=== PATIENT | male | born 1990 | race Caucasian/White ===

== ENCOUNTER 2021-10-31 20:27 | Emergency (ER) | payer BC, SELFPAY ==
[~2021-10-31] VITALS: Ht 182.9 cm; Wt 77.3 kg
[2021-10-31 20:27] VITALS: BP 148/92
== END 2021-11-01 02:42 | disposition left against medical advice (07) ==
LOC: M ED 20:27
DX: Z53.29 Procedure and treatment not carried out because of patient's decision for other reasons (principal)

== ENCOUNTER 2021-12-27 19:12 | Emergency (ER) | payer OTHER ==
[~2021-12-27] VITALS: Ht 182.9 cm; Wt 76.0 kg
[2021-12-27 22:55] VITALS: BP 138/63
== END 2021-12-27 23:00 | disposition home or self-care (01) ==
LOC: M ED 19:12
DX: S06.0X0A Concussion without loss of consciousness, initial encounter (principal); X58.XXXA Exposure to other specified factors, initial encounter; Y92.89 Other specified places as the place of occurrence of the external cause

== ENCOUNTER → 2022-01-18 | Outpatient (REF) | payer OTHER ==
[2022-01-18 17:57] LABS: BASO # 0.1 10^3/uL (0.0-0.2); BASO % 0.8 % (0.0-1.0); EOS # 0.1 10^3/uL (0.0-0.5); EOS % 1.1 % (0.0-3.0); HEMATOCRIT 43.9 % (42.0-52.0); HEMOGLOBIN 15.3 g/dl (13.5-17.5); LYMPH # 2.6 10^3/uL (1.5-5.0); LYMPH % 28.4 % (24.0-44.0); MEAN CORPUSCULAR HGB CONC 34.9 g/dl (32.0-36.5); MEAN CORPUSCULAR VOLUME 86.1 fl (80.0-96.0); MONO # 0.7 10^3/uL (0.0-0.8); MONO % 7.3 % (2.0-8.0); NEUTROPHILS # 5.6 10^3/uL (1.5-8.5); NEUTROPHILS % 62.1 % (36.0-66.0); PLATELET COUNT, AUTOMATED 270 10^3/uL (150-450); WHITE BLOOD COUNT 9.1 10^3/uL (4.0-10.0)
[2022-01-18 18:28] LABS: ALT/SGPT 145 U/L (12-78); BILIRUBIN,TOTAL 0.5 MG/DL (0.2-1.0); BLOOD UREA NITROGEN 20 MG/DL (7-18); CALCIUM LEVEL 9.1 MG/DL (8.5-10.1); CARBON DIOXIDE LEVEL 32 MEQ/L (21-32); CHLORIDE LEVEL 108 MEQ/L (98-107); CREATININE FOR GFR 1.26 MG/DL (0.70-1.30); GLOMERULAR FILTRATION RATE > 60.0 (>60); GLUCOSE, FASTING 76 MG/DL (70-100); POTASSIUM SERUM 4.2 MEQ/L (3.5-5.1); SODIUM LEVEL 142 MEQ/L (136-145); TOTAL PROTEIN 7.3 GM/DL (6.4-8.2)
[2022-01-21 21:05] LABS: HEPATITIS C QUANTITATION 2080000 IU/mL (.); HEPATITIS C VIRUS GENOTYPE 1a (.)
== END ==
LOC: M LAB REF 17:00
PROVIDERS: ATTEND Nurse Practitioner Family
DX: B18.2 Chronic viral hepatitis C (principal)

== ENCOUNTER → 2022-03-01 | Outpatient (REF) | LOC: M EMP 13:50 | PROVIDERS: ATTEND Family Medicine | DX: Z20.822 Contact with and (suspected) exposure to COVID-19 (principal) ==

== ENCOUNTER → 2022-03-14 | Outpatient (CLI) | payer OTHER ==
[2022-03-14 16:35] LABS: HEPATITIS B SURFACE ANTIBODY POSITIVE (POSITIVE); HEPATITIS B SURFACE ANTIGEN NEGATIVE (NEGATIVE); HIV 1&2 SCREEN CENTAUR NEGATIVE (NEGATIVE)
[2022-03-17 00:11] LABS: HEPATITIS A IgG TOTAL Positive (Negative); HEPATITIS B CORE ANTIBODY IGG Negative (Negative)
== END ==
LOC: M PLALAB 13:30
PROVIDERS: ATTEND Internal Medicine Infectious Disease
DX: B18.2 Chronic viral hepatitis C (principal)

== ENCOUNTER 2022-03-23 12:42 | Emergency (ER) | payer OTHER, SELFPAY ==
[~2022-03-23] VITALS: Ht 182.9 cm; Wt 78.2 kg
[2022-03-23 12:42] VITALS: BP 139/80
== END 2022-03-23 14:03 | disposition left against medical advice (07) ==
LOC: M ED 12:42
DX: Z53.29 Procedure and treatment not carried out because of patient's decision for other reasons (principal)

== ENCOUNTER → 2022-07-12 | Outpatient (CLI) | payer OTHER ==
[2022-07-12 15:31] LABS: ALBUMIN 3.7 GM/DL (3.2-5.2); BILIRUBIN,DIRECT 0.3 MG/DL (0.0-0.2); BILIRUBIN,TOTAL 0.4 MG/DL (0.2-1.0); TOTAL PROTEIN 6.8 GM/DL (6.4-8.2)
[2022-07-13 15:12] LABS: HEPATITIS C QUANTITATION HCV Not Detected IU/mL (.)
== END ==
LOC: M PLALAB 10:31
PROVIDERS: ATTEND Internal Medicine Infectious Disease
DX: B18.2 Chronic viral hepatitis C (principal)

== ENCOUNTER → 2023-02-20 | Outpatient (REF) | payer OTHER ==
[2023-02-20 15:45] LABS: ALBUMIN 3.9 G/DL (3.2-5.2); ALKALINE PHOSPHATASE 55 U/L (46-116); ALT/SGPT 32 U/L (7.0-40); AST/SGOT 23 U/L (<34); BILIRUBIN,TOTAL 0.5 MG/DL (0.3-1.2); BLOOD UREA NITROGEN 24 MG/DL (9-23); CALCIUM LEVEL 9.2 MG/DL (8.5-10.1); CARBON DIOXIDE LEVEL 28 MMOL/L (20-31); CHLORIDE LEVEL 109 MMOL/L (98-107); CHOLESTEROL LEVEL 214 MG/DL (<200); CHOLESTEROL RISK RATIO 3.81 (<5); CREATININE FOR GFR 0.99 MG/DL (0.70-1.30); GLOMERULAR FILTRATION RATE > 60.0 (>60); GLUCOSE, FASTING 87 MG/DL (60-100); HDL CHOLESTEROL 56.1 MG/DL (>40); LDL CHOLESTEROL 131.3 MG/DL (<100); NON-HDL-C 157.9 MG/DL; POTASSIUM SERUM 4.5 MMOL/L (3.5-5.1); SODIUM LEVEL 141 MMOL/L (136-145); TOTAL PROTEIN 7.3 G/DL (5.7-8.2); TRIGLYCERIDES LEVEL 133 MG/DL (<150)
[2023-02-20 15:47] LABS: THYROID STIMULATING HORMONE 1.184 uIU/ML (0.55-4.78)
[2023-02-20 17:59] LABS: BASO # 0.1 10^3/uL (0.0-0.2); BASO % 0.9 % (0.0-1.0); EOS # 0.2 10^3/uL (0.0-0.5); EOS % 2.4 % (0.0-3.0); HEMATOCRIT 47.7 % (42.0-52.0); HEMOGLOBIN 16.4 g/dl (13.5-17.5); LYMPH % 25.5 % (24.0-44.0); MEAN CORPUSCULAR HEMOGLOBIN 30.4 pg (27.0-33.0); MEAN CORPUSCULAR HGB CONC 34.4 g/dl (32.0-36.5); MEAN CORPUSCULAR VOLUME 88.3 fl (80.0-96.0); MONO # 0.7 10^3/uL (0.0-0.8); NEUTROPHILS % 61.8 % (36.0-66.0); PLATELET COUNT, AUTOMATED 253 10^3/uL (150-450)
== END ==
LOC: M LAB REF 12:31
PROVIDERS: ATTEND Nurse Practitioner Family
DX: E66.3 Overweight (principal)

== ENCOUNTER 2024-03-12 14:04 | Emergency (ER) | payer OTHER, SELFPAY ==
[~2024-03-12] VITALS: Ht 182.9 cm; Wt 96.7 kg
[2024-03-12 14:05] VITALS: BP 173/88; TEMP 99.4; O2SAT 99
== END 2024-03-12 18:36 | disposition left against medical advice (07) ==
LOC: M ED 14:04
DX: Z53.21 Procedure and treatment not carried out due to patient leaving prior to being seen by health care provider (principal)

== ENCOUNTER 2024-03-15 13:22 | Day surgery (SDC) | payer SELFPAY ==
[~2024-03-15] VITALS: Ht 182.9 cm; Wt 93.2 kg
[2024-03-15] MEDS ORDERED: KETOROLAC 60MG 2ML VIAL As Ordered ONE (13:57)
[2024-03-15] MEDS ORDERED: LIDOCAINE 2% 100MG/5ML SDV (FOR ANES.) As Ordered ONE (13:57)
[2024-03-15] MEDS ORDERED: ONDANSETRON 4MG 2ML VIAL As Ordered ONE (13:57)
[2024-03-15] MEDS ORDERED: propofoL 200 MG/20 ML VIAL As Ordered ONE (13:57)
[2024-03-15] MEDS ORDERED: MIDAZOLAM INJ 2MG/2ML VIAL As Ordered ONE (14:00)
[2024-03-15] MEDS ORDERED: fentaNYL 100 MCG/2 ML INJECTION As Ordered ONE (14:00)
[2024-03-15] MEDS: ceFAZolin SOD 2 GM in IV 1 EA IV ONE (15:13)
[2024-03-15] MEDS ORDERED: ACETAMINOPHEN 1000MG 100ML IV BAG As Ordered ONE (15:14)
[2024-03-15] MEDS ORDERED: hydrALAZINE 20MG/ML 1ML VIAL As Ordered ONE (15:41)
[2024-03-15] MEDS: BACITRACIN OINTMENT 30GM TUBE As Ordered ONE (16:00)
[2024-03-15] MEDS ORDERED: LR 1,000 ML IV SCH (16:15)
[2024-03-15] MEDS ORDERED: fentaNYL 100 MCG/2 ML INJECTION IV PRN (16:15)
[2024-03-15] MEDS ORDERED: HYDROmorphone HCL 2MG/ML 1ML VIAL As Ordered ONE (16:17)
[2024-03-15] MEDS: oxyCODONE 5MG TAB PO PRN (16:24)
[2024-03-15] MEDS ORDERED: OXYC1TAB23 PO (16:25)
[2024-03-15] MEDS: HYDROMORPHONE HCL 0.5 MG/ 0.5 ML SYRINGE IV PRN (16:37)
[2024-03-15] MEDS: ONDANSETRON 4MG 2ML VIAL IV PRN (16:54)
[2024-03-15] MEDS: KETOROLAC 30 MG/ML 1ML VIAL IV ONE (16:54)
[2024-03-15 17:05] VITALS: BP 129/68; TEMP 98.5; O2SAT 97
== END 2024-03-15 17:35 | disposition home or self-care (01) ==
LOC: M SDC 13:22
PROVIDERS: ATTEND Orthopaedic Surgery Hand Surgery
DX: S62.633B Displaced fracture of distal phalanx of left middle finger, initial encounter for open fracture (principal); L60.8 Other nail disorders; X58.XXXA Exposure to other specified factors, initial encounter; Y92.89 Other specified places as the place of occurrence of the external cause; Y93.89 Activity, other specified; Y99.8 Other external cause status; E11.9 Type 2 diabetes mellitus without complications; F17.200 Nicotine dependence, unspecified, uncomplicated
CPT/HCPCS: 11012; 76000; J0131; J0360; J0665; J0690; J1100; J1170; J1885; J2250; J2405; J3010

== ENCOUNTER → 2024-03-27 | Outpatient (CLI) | payer SELFPAY ==
[~2024-03-27] MED LIST: OXYC1TAB23 PO
== END ==
LOC: M SOG 07:59
PROVIDERS: ATTEND Physician Assistant
DX: S62.639D Displaced fracture of distal phalanx of unspecified finger, subsequent encounter for fracture with routine healing (principal)

== ENCOUNTER → 2025-02-24 | Outpatient (REF) | payer OTHER ==
[2025-02-24 18:30] LABS: ALBUMIN 4.6 G/DL (3.2-5.2); BILIRUBIN,DIRECT 0.2 MG/DL (<0.4); BILIRUBIN,TOTAL 0.6 MG/DL (0.3-1.2); CALCIUM LEVEL 9.4 MG/DL (8.5-10.1); CHOLESTEROL RISK RATIO 4.4 (<5); CREATININE FOR GFR 1.15 MG/DL (0.70-1.30); GLOMERULAR FILTRATION RATE 85.1 (>60); HDL CHOLESTEROL 44.3 MG/DL (>40); LDL CHOLESTEROL 110.3 MG/DL (<100); MAGNESIUM LEVEL 2.2 MG/DL (1.8-2.4); NON-HDL-C 150.7 MG/DL; POTASSIUM SERUM 4.4 MMOL/L (3.5-5.1); TOTAL PROTEIN 7.4 G/DL (5.7-8.2)
[2025-02-24 18:31] LABS: BASO # 0.1 10^3/uL (0.0-0.2); EOS # 0.1 10^3/uL (0.0-0.5); HEMATOCRIT 49.5 % (42.0-52.0); HEMOGLOBIN 17.6 g/dl (13.5-17.5); LYMPH % 18.2 % (24.0-44.0); MEAN CORPUSCULAR HEMOGLOBIN 30.9 pg (27.0-33.0); MEAN CORPUSCULAR HGB CONC 35.6 g/dl (32.0-36.5); MEAN CORPUSCULAR VOLUME 86.8 fl (80.0-96.0); MONO # 0.8 10^3/uL (0.0-0.8); NEUTROPHILS # 7.8 10^3/uL (1.5-8.5); NEUTROPHILS % 72.5 % (36.0-66.0); PLATELET COUNT, AUTOMATED 243 10^3/uL (150-450); THYROID STIMULATING HORMONE 0.906 uIU/ML (0.55-4.78); WHITE BLOOD COUNT 10.8 10^3/uL (4.0-10.0)
[2025-02-24 18:42] LABS: HEMOGLOBIN A1c 4.2 % (4.0-6.0)
== END ==
LOC: M LAB REF 17:15
PROVIDERS: ATTEND Nurse Practitioner Family
DX: R07.89 Other chest pain (principal); E66.3 Overweight; R79.89 Other specified abnormal findings of blood chemistry